=== PATIENT | male | born 1970 | race Caucasian/White ===

== ENCOUNTER 2021-06-29 10:33 | Emergency (ER) | payer OTHER ==
[~2021-06-29] VITALS: Ht 180.3 cm; Wt 106.3 kg
[2021-06-29] MEDS ORDERED: BOOSTRIX/ADACEL VACCINE (DIPHTH/PERTUSS/ACELL/TETANUS) 0.5ML SYR IM ONE (12:35)
[2021-06-29] MEDS ORDERED: ceFAZolin 1GM VIAL (J0690 PER 500MG) IM ONE (13:05)
[2021-06-29 14:50] VITALS: BP 170/80
[2021-06-30] MEDS ORDERED: CEPH500C (11:48)
== END 2021-06-29 14:51 | disposition home or self-care (01) ==
LOC: M ED 10:33
DX: S61.202A Unspecified open wound of right middle finger without damage to nail, initial encounter (principal); X58.XXXA Exposure to other specified factors, initial encounter; W26.9XXA Contact with unspecified sharp object(s), initial encounter; Y92.009 Unspecified place in unspecified non-institutional (private) residence as the place of occurrence of the external cause; Y93.9 Activity, unspecified; Y99.9 Unspecified external cause status
CPT/HCPCS: 73140; 90471; 90715; 96372; 99283; J0690

== ENCOUNTER → 2021-06-30 | Outpatient (CLI) | payer OTHER ==
[~2021-06-30] MED LIST: CEPH500C
== END ==
LOC: M LABSMTC 10:08
PROVIDERS: ATTEND Anesthesiology
DX: Z01.818 Encounter for other preprocedural examination (principal); Z11.52 Encounter for screening for COVID-19

== ENCOUNTER 2021-07-01 09:15 | Day surgery (SDC) | payer OTHER ==
[~2021-07-01] VITALS: Ht 180.3 cm; Wt 103.0 kg
[~2021-07-01 09:15] MED LIST changes: +LR 1,000 ML IV SCH; +ceFAZolin SOD 2 GM in IV 1 EA IV SCH
[2021-07-01] MEDS ORDERED: ceFAZolin SOD 2 GM in IV 1 EA IV ONE (09:55)
[2021-07-01] MEDS ORDERED: propofoL 200 MG/20 ML VIAL As Ordered ONE (12:41)
[2021-07-01] MEDS ORDERED: LIDOCAINE 2% 100MG/5ML SDV (FOR ANES.) As Ordered ONE (12:41)
[2021-07-01] MEDS ORDERED: MIDAZOLAM INJ 2MG/2ML VIAL (J2250 PER 1MG) As Ordered ONE (12:42)
[2021-07-01] MEDS ORDERED: fentaNYL 100 MCG/2 ML INJECTION (J3010) As Ordered ONE (12:42)
[2021-07-01] MEDS ORDERED: BUPIVACAINE HCL 0.25% 30ML VIAL As Ordered ONE (13:08)
[2021-07-01] MEDS ORDERED: BACITRACIN OINTMENT 30GM TUBE As Ordered ONE (13:52)
[2021-07-01] MEDS ORDERED: fentaNYL 100 MCG/2 ML INJECTION (J3010) IV PRN (14:25)
[2021-07-01] MEDS ORDERED: ONDANSETRON 4MG/2ML VIAL IV PRN (14:25)
[2021-07-01] MEDS ORDERED: LR 1,000 ML IV SCH (14:25)
[2021-07-01] MEDS ORDERED: PERCOCET 5MG/325MG TAB PO PRN (14:25)
[2021-07-01 14:35] VITALS: BP 145/83
== END 2021-07-01 14:55 | disposition home or self-care (01) ==
LOC: M SDC 09:15
PROVIDERS: ATTEND Orthopaedic Surgery Hand Surgery
DX: S68.122A Partial traumatic metacarpophalangeal amputation of right middle finger, initial encounter (principal); X58.XXXA Exposure to other specified factors, initial encounter; W26.9XXA Contact with unspecified sharp object(s), initial encounter; Y93.89 Activity, other specified; Y99.8 Other external cause status; F17.210 Nicotine dependence, cigarettes, uncomplicated; Z79.2 Long term (current) use of antibiotics
CPT/HCPCS: 26951; 76000; J0690; J2250; J3010